=== PATIENT | male | born 1955 | race Caucasian/White ===

== ENCOUNTER 2016-12-06 14:37 | Inpatient (IN) | payer MEDICAID ==
[~2016-12-06] VITALS: Ht 167.6 cm; Wt 118.7 kg
--- NOTE | 2016-12-06 15:06 | NUR ---
ARRIVE TO ROOM VIA STRETCHER FROM [facility] ACCOMPANIED BY FIELD BROOMER AND SPOUSE. ALERT AND ORIENTED X4. TORRES DRAINING BY GRAVITY. LT AC PATENT SALINE LOCKED. REPORT SHOWS RECIEVING LOVENOX INJ. CHRONIC SOB, HOME OXYGEN. REQUESTING MORPHINE TO BE ORDERED. COMPLAINS OF SCROTUM HURTING. CONTINUE ADMISSION PROCESS. BED LOCKED AND LOW. CALL LIGHT IN REACH. TWO SIDERAILS UP.
[2016-12-06 15:37] LABS: BASOPHILS 0.3 % (0-2); EOSINOPHILS 2.5 % (0-7); HEMATOCRIT 34.4 % (42.0-54.0); HEMOGLOBIN 10.5 g/dL (13.5-17.5); IMMATURE GRANULOCYTES 0.2 % (0-5); LYMPHOCYTES 15.4 % (15-50); MCH 29.9 pg (26.0-34.0); MCHC 30.5 g/dL (31.0-37.0); MEAN PLATELET VOLUME 11.5 fL (7.4-10.4); MONOCYTES 13.7 % (2-11); NEUTROPHILS 67.9 % (40-80); PLATELET COUNT 165 10x3/uL (130-400); RBC 3.51 10x6/uL (4.20-6.10); RDW 14.9 % (11.5-14.5); WBC 10.6 10x3/uL (4.8-10.8)
[2016-12-06 15:56] LABS: ALBUMIN 2.9 g/dL (3.4-5.0); ANION GAP 11.1 mmol/L (8-16); BILIRUBIN - DIRECT 0.19 mg/dL (0.00-0.30); BILIRUBIN - INDIRECT 0.2 mg/dL (0.00-1.00); BILIRUBIN - TOTAL 0.39 mg/dL (0.2-1.3); CALCIUM 7.8 mg/dL (8.5-10.1); CARBON DIOXIDE 31.5 mmol/L (21.0-32.0); POTASSIUM - SERUM 4.6 mmol/L (3.5-5.1); PROTEIN - SERUM 7.2 g/dL (6.4-8.2)
[2016-12-06 15:59] VITALS: BP 90/42
[2016-12-06] MEDS ORDERED: LOVASTATIN20 MG PO (15:59)
[2016-12-06] MEDS ORDERED: NITROSTAT0.4 MG SL (16:00)
[2016-12-06] MEDS ORDERED: ISOSORBIDE MONO60 M1 PO (16:04)
[2016-12-06] MEDS ORDERED: COREG12.5 MG PO (16:06)
[2016-12-06] MEDS ORDERED: PROAIR HFA8.5 GM INH (16:06)
[2016-12-06] MEDS ORDERED: ZOFRAN4 MG PO (16:07)
[2016-12-06] MEDS ORDERED: HYDROCODON-ACE1 EAC7 PO (16:07)
[2016-12-06 16:08] LABS: INR 1.23 (0.85-1.17); PROTIME 15.4 SECONDS (11.6-15.0)
[2016-12-06] MEDS ORDERED: SYNTHROID25 MCG PO (16:08)
[2016-12-06] MEDS ORDERED: PHENAZOPYRIDIN100 MG PO (16:08)
[2016-12-06] MEDS ORDERED: HYDROCORTISONE30 G9 TOPICAL (16:09)
[2016-12-06] MEDS ORDERED: ANUSOL-HC25 MG RC (16:10)
[2016-12-06] MEDS ORDERED: ROCEPHIN 1 GM/D51 G1 IV (16:11)
[2016-12-06 16:35] VITALS: BP 98/51; BMI 51.4
[2016-12-06 17:06] LABS: THYROID STIMULATING HORMONE 5.42 uIU/mL (0.36-3.74)
--- NOTE | 2016-12-06 18:45 | NUR ---
ALERT AND ORIENTED X4. CONSENTS SIGNED FOR TRIALYSIS PLACEMENT. EKG COMPLETE ON CHART. TRIALYSIS PLACED BY . PLAN TO DIALIZE TONIGHT. CONTINUE PLAN OF CARE AND SAFETY PRECAUTIONS.
[2016-12-06 19:09] LABS: T4 THYROXIN - FREE 1.3 ng/dL (0.76-1.46)
[2016-12-06 20:00] VITALS: BP 119/55
--- NOTE | 2016-12-06 20:20 | NUR ---
AWAKE AND ALERT. CO PAIN BUT EXPLAINED TO PT NOTHING ORDERED.
[2016-12-07] VITALS: BP 116/61
[2016-12-07 04:00] VITALS: BP 133/60
--- NOTE | 2016-12-07 05:00 | NUR ---
DURING THIS SHIFT, PT CO PAIN IN NECK. TRIALYSIS DRESSING NOT CORRECT. DRESSING CHANGED BY Kerwin MARES LPN. BIOPATCH APPLIED. DRESSING DATED. MEDICATED FOR PAIN.
[2016-12-07 06:05] LABS: ANION GAP 12.2 mmol/L (8-16); CARBON DIOXIDE 31.1 mmol/L (21.0-32.0); CREATININE - SERUM 5.4 mg/dL (0.6-1.3); POTASSIUM - SERUM 4.3 mmol/L (3.5-5.1)
--- NOTE | 2016-12-07 07:04 | OP ---
PATIENT NAME: CHLOE LANGSTON MEDICAL RECORD: [id number] :57 LOCATION:D. D.2125 ADMISSION DATE:12/06/16 SURGEON: MOOK LAROSE MD DATE OF OPERATION: 12/06/2016 SURGEON: Dr. Mook Larose. PREOPERATIVE DIAGNOSES: Acute renal failure requiring hemodialysis, congestive heart failure, diabetes, coronary artery disease and chronic obstructive pulmonary disease. POSTOPERATIVE DIAGNOSES: Acute renal failure requiring hemodialysis, congestive heart failure, diabetes, coronary artery disease and chronic obstructive pulmonary disease. PROCEDURE PERFORMED: Ultrasound-guided insertion of left internal jugular Trialysis catheter. ANESTHESIA: Local. COMPLICATIONS: None. SPECIMENS: None. Case was clean. ESTIMATED BLOOD LOSS: 20 cc. OPERATIVE COURSE: After consent was obtained, the patient was placed in the supine position in his hospital bed. He was placed in Trendelenburg position. A shoulder roll was placed. A timeout was taken to confirm the correct patient and procedure. The left chest and neck were prepped and draped in typical sterile fashion. Left internal jugular vein was identified with ultrasound. The left internal jugular vein was cannulated under ultrasound guidance. The angiocatheter was left in place and that was removed. The wire was placed through the angiocatheter. The angiocatheter was removed. The skin incision was made with 11-blade scalpel. Dilators were passed over the wire in a standard Seldinger fashion, catheter was passed through the wires in standard Seldinger fashion and catheter was secured to the skin using 2-0 nylon suture in an interrupted fashion. Sterile Tegaderm dressing was placed. At the end of the procedure, all needle and instrument counts were correct. No complications occurred and immediate postoperative chest x-ray was performed to confirm placement of the line. TRANSINT:[id number] Voice Confirmation ID: [id number] DOCUMENT ID: [id number] MOOK LAROSE MD at 0704 CC: [id number] DICTATION DATE: 12/06/161750 ROSE GROWER: 12/07/16 0044 ADM IN [place] [id number] [place] [address]
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
--- NOTE | 2016-12-07 08:04 | NUR ---
ASSESSMENT DONE. DENIES NEEDS.
[2016-12-07 08:45] VITALS: BP 125/60
--- NOTE | 2016-12-07 09:06 | NUR ---
UP IN CHAIR WITH CALL LIGHT IN REACH. RESP UL ON . BRIAN INTACT. AT BS. WILL CONT. PLAN OF CARE.
--- NOTE | 2016-12-07 11:00 | NUR ---
TO HD PER BED
[2016-12-07 12:30] VITALS: Ht 167.6 cm; Wt 118.7 kg
--- NOTE | 2016-12-07 14:00 | NUR ---
Patient Name: CHLOE LANGSTON Admission Status: Urgent Accout number: [id number] Admission Date: 12-06-2016 : 1955 Admission Diagnosis: Attending: RADHA Current LOS: 1 Anticipated DC Date: Planned Disposition: Home with Home Health Primary Insurance: MEDICAID [place] PLANNED EXTERNAL PROVIDER: [facility] Discharge Planning Comments: * Is the patient Alert and Oriented? Yes 0 * How many steps to enter\exit or inside your home? 5 0 * PCP DR. WOODRUFF 0 * Pharmacy [facility] DRUGS 0 * Preadmission Environment Home with Family 0 * ADLs Independent 0 * Equipment Oxygen 0 * Other Equipment HOME OXYGEN ONLY [facility] - MEDICAL EQUIPMENT PROVIDER 0 * List name and contact numbers for known caregivers / representatives who currently or will assist patient after discharge: ROMIE LANGSTON, SPOUSE, 0 * Community resources currently utilized Home Health 0 * Please name any agencies selected above. [facility], 0 * Additional services required to return to the preadmission environment? Yes * Can the patient safely return to the preadmission environment? Yes 0 * Has this patient been hospitalized within the prior 30 days at any hospital? No 0 CM RECEIVED ORDER FOR OUTPATIENT DIALYSIS ARRANGEMENT IN [place]. CM MET WITH PT AND SPOUSE IN ROOM TO DISCUSS DISCHARGE PLANNING AND NEEDS. PT REPORTS LIVING AT HOME INDEPENDENTLY WITH HIS SPOUSE. PT HAS HOME OXYGEN FROM [facility]. PT HAS HOME HEALTH WITH [facility] FOR NURSING CARE ONCE WEEKLY. CM DISCUSSED AVAILABILITY OF HOME HEALTH, REHAB SERVICES AND MEDICAL EQUIPMENT. PT DENIES DISCHARGE NEEDS, REPORTS HE WILL GO HOME AT DISCHARGE AND HAS NO TRANSPORTATION. PT'S SPOUSE REPORTS THEY WILL HAVE A FRIEND PICK THEM UP IF NEEDED. PT'S SPOUSE REPORTS THEY WILL HAVE DIFFICULTY GETTING TRANSPORATION ON REGULAR BASIS FOR DIALYSIS. PT HAS MEDICAID AND NEVER USED MEDICAID TRANSPORTATION SERVICES. PT DOES WANT OUTPATIENT DIALYSIS ARRANGED IN [facility]. CM CALLED [facility], PATIENT PATHWAYS COORDINATOR, , LEFT MESSAGE NOTIFYING OF ORDER FOR OUTPATIENT CLINIC ARRANGEMENT. CM CALLED [employer]ICAID TRANSPORTATION, , SPOKE TO REY AND VERIFIED PT HAS UNLIMITED FREE MEDICAL TRANSPORTATION. [facility] DOES NOT OPERATE ON WEEKENDS OR HOLIDAYS. FOR OUTPATIENT DIALYSIS CLINIC TRANSPORTATION ARRANGEMENT , FAX APPOINTMENT INFORMATION WITH FACE SHEET TO [employer]ICA[employer] TRANSPOR[employer], . CM NOTIFIED PT AND SPOUSE IN ROOM, PROVIDED MEDICAID TRANSPORTATION NUMBER. CM CALLED [facility], , SPOKE TO ROB WHO REPORTED THAT PT HAS BEEN DISCHARGED FROM HOME HEALTH AND WILL REQUIRE NEW ORDERS FOR HOME HEALTH IF NEEDED. CM WAITING OUTPATIENT DIALYSIS CLINIC ARRANGEMENT FOR PT BY PATIENT PATHWAYS COORDINATOR. ONCE DIALYSIS CLINIC APPOINTMENT INFORMATION RECEIVED, FOR TRANSPORTATION ARRANGEMENT, CM TO FAX APPOINTMENT INFORMATION WITH FACE SHEET TO MEDICAID TRANSPORATION, . IF PATIENT REQUIRES HOME HEALTH, NEW PHYSICIAN ORDERS WILL BE REQUIRED. It Intern: Del Shankar
--- NOTE | 2016-12-07 16:25 | NUR ---
SCD'S ON JOHN LE
[2016-12-07 16:39] VITALS: BP 145/70
[2016-12-07 16:54] LABS: CREATININE - URINE 53.9 mg/dL (30-125); PROTEIN - URINE 23.2 mg/dL (0.0-11.9)
[2016-12-07 16:57] LABS: APPEARANCE CLEAR (CLEAR); BILIRUBIN NEGATIVE (NEGATIVE); COLOR YELLOW (YELLOW); GLUCOSE NEGATIVE (NEGATIVE); KETONE NEGATIVE (NEGATIVE); LEUKOCYTE ESTERASE 2+ (NEGATIVE); NITRITE POSITIVE (NEGATIVE); PROTEIN NEGATIVE (NEGATIVE); SPECIFIC GRAVITY 1.015 (1.005-1.020); UROBILINOGEN NORMAL (NORMAL)
[2016-12-07 16:58] LABS: BACTERIA FEW /hpf (NONE SEEN); EPITHELIAL CELLS 0-5 /hpf (0-5); RED CELLS - URINE 0-5 /hpf (0-5)
[2016-12-07 20:16] VITALS: BP 149/78
--- NOTE | 2016-12-07 20:51 | NUR ---
DIALYSIS COORDINATOR: Received verbal order from Dr. Elizabeth regarding patient needing OPHD placement. Chart accessed, records uploaded. Patient lives in [place], request for placement at [facility] ([place]). Referral forwarded review. Schedule pending business services director & financial approval. FELICE FREITAS.
[2016-12-08 00:23] VITALS: BP 131/70
[2016-12-08 04:13] VITALS: BP 131/75
[2016-12-08 04:58] LABS: BASOPHILS 0.3 % (0-2); EOSINOPHILS 2.8 % (0-7); HEMATOCRIT 34.9 % (42.0-54.0); HEMOGLOBIN 10.9 g/dL (13.5-17.5); IMMATURE GRANULOCYTES 0.1 % (0-5); LYMPHOCYTES 15.2 % (15-50); MCH 30.1 pg (26.0-34.0); MCHC 31.2 g/dL (31.0-37.0); MCV 96.4 fL (80.0-100.0); MEAN PLATELET VOLUME 11.1 fL (7.4-10.4); MONOCYTES 14.8 % (2-11); NEUTROPHILS 66.8 % (40-80); PLATELET COUNT 192 10x3/uL (130-400); RBC 3.62 10x6/uL (4.20-6.10); RDW 14.6 % (11.5-14.5); WBC 9.3 10x3/uL (4.8-10.8)
[2016-12-08 05:14] LABS: TOTAL IRON BIND CAPACITY 296 ug/dl (260-445)
[2016-12-08 05:27] LABS: ANION GAP 9.9 mmol/L (8-16); CALCIUM 8.9 mg/dL (8.5-10.1); CARBON DIOXIDE 33.6 mmol/L (21.0-32.0)
[2016-12-08 05:28] LABS: CREATININE - SERUM 3.2 mg/dL (0.6-1.3); POTASSIUM - SERUM 3.5 mmol/L (3.5-5.1)
[2016-12-08 05:59] LABS: % SATURATION 12 % (15-55); IRON 36 ug/dl (35-150); UNSAT IRON BIND CAPACITY 248 ug/dl (150-375)
[2016-12-08 08:08] VITALS: BP 136/70
--- NOTE | 2016-12-08 10:41 | NUR ---
HIBCLEANS BATH GIVEN PREOP FOR OR.
[2016-12-08 11:24] VITALS: BP 161/91
--- NOTE | 2016-12-08 13:47 | NUR ---
PT REFUSES SCD'S STATES THEY HURT AND HE DOES NOT WANT THEM ON RIGHT NOW.
[2016-12-08 15:37] VITALS: BP 110/54
--- NOTE | 2016-12-08 17:26 | NUR ---
SITTING UP IN CHAIR CO PAIN IN SHOULDER AND NECK.
--- NOTE | 2016-12-08 18:35 | NUR ---
DIALYSIS COORDINATOR: Placement pending. Did not receive schedule from Dhaval Fletcher today. FELICE FREITAS
[2016-12-08 19:00] VITALS: BP 156/75
[2016-12-09] VITALS: BP 158/76
--- NOTE | 2016-12-09 00:04 | NUR ---
INITIAL ROUNDS COMPLETED AT 1909 HRS. PT IN RECLINER RESTING WITH EYES CLOSED. RESP EVEN AND REGULAR. AT BEDSDIE. ASSESSMENT COMPLETED AT 2034 HRS. VSS. SR PER CM HR 72. O2 3LNC. LUNGS DIMINISHED IN BASES BILAT WITH SCATTERED INSP WHEEZES NOTED TO UPPER LOBES. IV TO LAC WITH NS AT 5CC/HR. IV PATENT. L CHEST HEMOSPLIT WITH DRIED BLLOD NOTED DOWN TO MID CHEST AND L SHOULDER. 2-3+ EDEMA FROM MID THIGH DOWN. PALPABLE PEDAL PULSES. PM FSBS 226. REG INSULIN 4 UNITS GIVEN SUB-Q TO UPPER R ARM PER S/S. PM MEDS GIVNE. NEW CVL DRESSING APPLIED TO HEMOSPLIT USING STERILE TECHNIQUE. PT TOLERATED WELL. PT CURRETNLY RESTING WITH EYES CLOSED. RESP EVEN AND REGULAR. SR UP X2, CALL LIGHT WITHIN REACH.
--- NOTE | 2016-12-09 02:34 | NUR ---
CUP OF ICE GIVEN PER REQUEST. REINFORCED 1200CC FLUID RESTRICTION. INFORMED NO MORE FLUID UNTIL AM. WILL CONTINUE TO MONITOR.
--- NOTE | 2016-12-09 03:01 | NUR ---
BUPRENEX 0.2MG SIVP GIVEN FOR C/O CHEST PAIN. ANUSOL SUPP GIVEN PER REQUEST. WILL CONTINUE TO MONITOR.
[2016-12-09 04:00] VITALS: BP 142/68
--- NOTE | 2016-12-09 04:15 | NUR ---
PT RESTING WITH EYES CLOSED. IN RECLINER. RESP EVEN AND REGULAR. CALL LIGHT WITHIN REACH ANND AT BEDSIDE.
[2016-12-09 05:41] LABS: BASOPHILS 0.3 % (0-2); EOSINOPHILS 3.3 % (0-7); HEMATOCRIT 33.9 % (42.0-54.0); HEMOGLOBIN 10.3 g/dL (13.5-17.5); IMMATURE GRANULOCYTES 0.3 % (0-5); LYMPHOCYTES 15.5 % (15-50); MCH 29.9 pg (26.0-34.0); MCHC 30.4 g/dL (31.0-37.0); MEAN PLATELET VOLUME 10.8 fL (7.4-10.4); MONOCYTES 17.2 % (2-11); NEUTROPHILS 63.4 % (40-80); RBC 3.44 10x6/uL (4.20-6.10)
[2016-12-09 05:43] LABS: ANION GAP 10.2 mmol/L (8-16); CALCIUM 8.5 mg/dL (8.5-10.1); CARBON DIOXIDE 35.2 mmol/L (21.0-32.0); CREATININE - SERUM 3.2 mg/dL (0.6-1.3); POTASSIUM - SERUM 3.4 mmol/L (3.5-5.1)
[2016-12-09 05:45] LABS: MCV 98.5 fL (80.0-100.0); PLATELET COUNT 266 10x3/uL (130-400); WBC 11.7 10x3/uL (4.8-10.8)
--- NOTE | 2016-12-09 06:24 | NUR ---
VSS THROUGHOUT NIGHT. SR PER CM. PT STATED BUPRENEX HELPED CHEST PAIN. NEEDS MET; WILL CONTINUE TO MONITOR. AM FSBS 110. NO COVERGE NEEDED.
--- NOTE | 2016-12-09 07:45 | OP ---
PATIENT NAME: CHLOE LANGSTON MEDICAL RECORD: [id number] :57 LOCATION:D. D.2125 ADMISSION DATE:12/06/16 SURGEON: MOOK LAROSE MD DATE OF OPERATION: 12/08/2016 SURGEON: Mook Larose MD. PREOPERATIVE DIAGNOSIS: Acute renal failure requiring hemodialysis. POSTOPERATIVE DIAGNOSIS: Acute renal failure requiring hemodialysis. PROCEDURES PERFORMED: 1. Removal of left internal jugular Trialysis catheter. 2. Placement of a tunneled left internal jugular HemoSplit. 3. Ultrasound guidance. 4. Immediate interpretation of fluoroscopy. ANESTHESIA: General. COMPLICATIONS: None. ESTIMATED BLOOD LOSS: 300 cc. Case was clean. OPERATIVE COURSE: After consent was obtained, the patient was taken to the operating room and placed in supine position on the operating table. Next, general anesthesia was given via endotracheal intubation after a timeout was taken to confirm the correct patient and procedure. Neck and chest were prepped and draped in typical sterile fashion. A 20 cc of local anesthetic were administered. A 0.035 guidewire was placed through the Trialysis catheter. It was advanced to the atriocaval junction under fluoroscopy, the Trialysis catheter was removed. The dilator and breakaway sheath were passed over the wire in a standard Seldinger fashion. The HemoSplit was tunneled and incision was made in the left chest wall. The HemoSplit was tunneled from the left chest wall incision to the needle stick site. The dilator and wire were removed. The catheter was placed to the breakaway sheath. The breakaway sheath was removed. The catheter at this time would not aspirate blood, it would not flush. The catheter was removed in its entirety. Next, the ultrasound probe was used to identify the left internal jugular vein and under ultrasound guidance, left internal jugular vein was cannulated. A 0.035 guidewire was placed through the needle under fluoroscopy, it was advance to the atriocaval junction and the needle was removed. The dilator and breakaway sheath were then passed over the wire again under fluoroscopy. A second catheter was then tunneled from the skin incision site to the needle stick site. The 0.035 Glidewire was then backloaded through the HemoSplit catheter. The dilator was removed. The HemoSplit catheter was then placed through the breakaway sheath. The breakaway sheath was removed. The catheter was advanced over the Glidewire and placed in the atriocaval junction. At this time, the Glidewire was removed. The needle stick site was closed with 3-0 Vicryl suture. Catheter was secured to the skin using 2-0 nylon suture and sterile Tegaderm dressing. Blood was aspirated to both ports. The ports were then flushed with 30 cc of saline mixed with 5000 units of heparin. At the end of the case, all needle and instrument counts were correct. No complications occurred. The patient extubated and transferred to the PACU in stable condition. OPERATIVE REPORT [id number] CHLOE LANGSTON TRANSINT:[id number] Voice Confirmation ID: [id number] DOCUMENT ID: [id number] MOOK LAROSE MD at 0745 CC: [id number] DICTATION DATE: 12/08/[address]OR: 12/08/16 2200 ADM IN [place] [address] [place] [address]
[2016-12-09 08:01] VITALS: BP 115/58
--- NOTE | 2016-12-09 08:14 | NUR ---
ASSESSMENT COMPLETED. TELEMERTY SHOWS SR 79. 02 AT 3 L/M PER NC. LEFT AC WITH NS AT 5. LEFT CHEST HEMISPLIT. 2 TO 3 EDEMA TO LEGS. TELEMERTY SHOWS SR. SLEEPING IN RECLINER. FAMILY AT BEDSIDE. WILL MONITOR
[2016-12-09 08:17] LABS: HEPATITIS C ANTIBODY <0.1 (0.0-0.9)
[2016-12-09 11:34] VITALS: BP 123/63
--- NOTE | 2016-12-09 11:52 | NUR ---
RESTING QUIETLY MEAL SERVED NAD NOTED
[2016-12-09 14:54] LABS: APPEARANCE CLEAR (CLEAR); BILIRUBIN NEGATIVE (NEGATIVE); COLOR YELLOW (YELLOW); GLUCOSE NEGATIVE (NEGATIVE); KETONE NEGATIVE (NEGATIVE); LEUKOCYTE ESTERASE 1+ (NEGATIVE); NITRITE NEGATIVE (NEGATIVE); PROTEIN TRACE mg/dL (NEGATIVE); UROBILINOGEN NORMAL (NORMAL)
[2016-12-09 14:55] LABS: BACTERIA FEW /hpf (NONE SEEN); EPITHELIAL CELLS 0-5 /hpf (0-5); RED CELLS - URINE 0-5 /hpf (0-5)
[2016-12-09 15:42] VITALS: BP 124/58
--- NOTE | 2016-12-09 18:01 | NUR ---
UP IN BEDSIDE CHAIR. DENIES ANY NEEDS. CALL LIGHT IN REACH WITH FAMILY AT BED SIDE. AWAITING DIALYSIS.
--- NOTE | 2016-12-09 20:52 | NUR ---
PT RESTING IN RECLINER. O2 @ 3L/NC. HEMOSPLIT IN LEFT CHEST WALL. HEMODIALYSIS IS NOW BEING DONE IN PATIENT'S ROOM. WILL MONITOR. CPOC.
--- NOTE | 2016-12-10 00:15 | NUR ---
DIALYSIS NOW COMPLETE. PT RESTING IN BED. AT BEDSIDE. CPOC. CALL LIGHT IN REACH.
[2016-12-10 04:00] VITALS: BP 118/57
[2016-12-10 04:46] LABS: BASOPHILS 0.2 % (0-2); EOSINOPHILS 3.4 % (0-7); HEMATOCRIT 32.4 % (42.0-54.0); HEMOGLOBIN 9.8 g/dL (13.5-17.5); IMMATURE GRANULOCYTES 0.3 % (0-5); LYMPHOCYTES 18.5 % (15-50); MCH 30.1 pg (26.0-34.0); MCHC 30.2 g/dL (31.0-37.0); MCV 99.4 fL (80.0-100.0); MEAN PLATELET VOLUME 10.1 fL (7.4-10.4); MONOCYTES 11.7 % (2-11); NEUTROPHILS 65.9 % (40-80); PLATELET COUNT 223 10x3/uL (130-400); RBC 3.26 10x6/uL (4.20-6.10); RDW 14.6 % (11.5-14.5); WBC 11.1 10x3/uL (4.8-10.8)
[2016-12-10 04:57] LABS: ANION GAP 8.7 mmol/L (8-16); CALCIUM 8.3 mg/dL (8.5-10.1); CREATININE - SERUM 2.5 mg/dL (0.6-1.3); POTASSIUM - SERUM 3.7 mmol/L (3.5-5.1)
--- NOTE | 2016-12-10 07:36 | NUR ---
ASSESSMENT COMPLETED. UP IN BEDSIDE CHAIR SLEEPING. 02 AT 4 L/M PER NC. HEMISPLIT TO LEFT CHEST. TELEMERTY SHOWS SR. FAMILY AT BEDSIDE. WILL MONIITOR. CALL LIGHT IN REACH.
[2016-12-10 08:00] VITALS: BP 125/53
--- NOTE | 2016-12-10 10:28 | NUR ---
SITTING IN CHAIR RESP UNLABORED NAD NOTED
[2016-12-10 12:00] VITALS: BP 120/57
--- NOTE | 2016-12-10 14:32 | NUR ---
DRESSING CHANGE TO HEMOSPLIT CATH IN THE LEFT UPPER CHEST, DRESSING DATED AND INITIALED
--- NOTE | 2016-12-10 15:06 | NUR ---
LYING IN BED. DENIES ANY FUTHER PAIN. AT BEDSIDE
[2016-12-10 16:00] VITALS: BP 127/65
[2016-12-10 20:00] VITALS: BP 146/55
[2016-12-11] VITALS (7 sets, daily range): BP systolic 120–163; BP diastolic 49–77
--- NOTE | 2016-12-11 04:41 | NUR ---
PT AWAKENED FOR AM LAB AND THEN C/O LEGS CRAMPING AND HURTING ALL OVER. REQUEST AND RECIEVED IV BUPRENEX 0.2MG SIVP FOR PAIN. PT IS UP IN BEDSIDE CHAIR AND IS UP AND ABOUT IN ROOM. PT TALKS VERY ABRUBTLY AND HARSHLY TO . MONITOR AND CPOC.
[2016-12-11 04:53] LABS: BASOPHILS 0.1 % (0-2); EOSINOPHILS 5.1 % (0-7); HEMOGLOBIN 10.3 g/dL (13.5-17.5); IMMATURE GRANULOCYTES 0.2 % (0-5); LYMPHOCYTES 20.9 % (15-50); MCHC 30.3 g/dL (31.0-37.0); MCV 99.1 fL (80.0-100.0); MEAN PLATELET VOLUME 9.9 fL (7.4-10.4); MONOCYTES 13.3 % (2-11); NEUTROPHILS 60.4 % (40-80); PLATELET COUNT 216 10x3/uL (130-400); RBC 3.43 10x6/uL (4.20-6.10); RDW 14.4 % (11.5-14.5); WBC 9.3 10x3/uL (4.8-10.8)
[2016-12-11 05:02] LABS: ANION GAP 12.2 mmol/L (8-16); CALCIUM 8.3 mg/dL (8.5-10.1); CARBON DIOXIDE 31.5 mmol/L (21.0-32.0); POTASSIUM - SERUM 3.7 mmol/L (3.5-5.1)
--- NOTE | 2016-12-11 06:33 | NUR ---
PT WITH EYES CLOSED, RESTING IN RECLINER. HAS SLEPT SINCE RECIEVING LAST DOSE OF BUPRENEX IV. NO CHANGE FROM INITIAL SHIFT ASSESSMENT. MONITOR AND CPOC.
--- NOTE | 2016-12-11 07:39 | NUR ---
ASSESSMENT DONE. AT SIDE.
--- NOTE | 2016-12-11 07:56 | NUR ---
RESP ON ON 2L NC. YOUTH ACCOMMODATION SUPPORT WORKER AT ASSISTING WITH NEEDS. WILL CONT. PLAN OF CARE.
--- NOTE | 2016-12-11 18:15 | NUR ---
WITHOUT CHANGES OR DISTRESS NOTED AT THIS TIME.
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
--- NOTE | 2016-12-11 21:29 | NUR ---
FSBS 165, PT REFUSES INS SS COVERAGE.
--- NOTE | 2016-12-12 00:38 | NUR ---
FLOOR LAYER HELPER AT BEDSIDE FOR VS. NEEDS ADDRESSED AT THIS TIME. CALL LIGHT IN REACH. WILL CONT TO MONITOR.
[2016-12-12 04:01] VITALS: BP 136/52
--- NOTE | 2016-12-12 05:25 | NUR ---
RESTING WELL WITH EYES CLOSED, CONT TO MONITOR.
[2016-12-12 06:01] LABS: BASOPHILS 0.2 % (0-2); EOSINOPHILS 4.6 % (0-7); HEMATOCRIT 31.7 % (42.0-54.0); HEMOGLOBIN 9.8 g/dL (13.5-17.5); IMMATURE GRANULOCYTES 0.2 % (0-5); LYMPHOCYTES 17.5 % (15-50); MCH 30.4 pg (26.0-34.0); MCHC 30.9 g/dL (31.0-37.0); MCV 98.4 fL (80.0-100.0); MEAN PLATELET VOLUME 9.9 fL (7.4-10.4); NEUTROPHILS 64.5 % (40-80); PLATELET COUNT 211 10x3/uL (130-400); RBC 3.22 10x6/uL (4.20-6.10); WBC 8.2 10x3/uL (4.8-10.8)
[2016-12-12 06:19] LABS: ANION GAP 7.1 mmol/L (8-16); CALCIUM 8.6 mg/dL (8.5-10.1); CARBON DIOXIDE 37.3 mmol/L (21.0-32.0); CREATININE - SERUM 1.6 mg/dL (0.6-1.3); POTASSIUM - SERUM 3.4 mmol/L (3.5-5.1)
--- NOTE | 2016-12-12 07:33 | NUR ---
ASSESSMENT DONE. DENIES NEEDS.
[2016-12-12 08:26] VITALS: BP 124/68
--- NOTE | 2016-12-12 09:33 | NUR ---
UP TO CHAIR. RESP UL ON . CALL LIGHT IN REACH. WILL CONT. PLAN OF CARE.
[2016-12-12 15:44] VITALS: BP 126/62
--- NOTE | 2016-12-12 17:00 | NUR ---
WITHOUT CHANGES OR DISTRESS NOTED AT THIS TIME. AT SIDE.
[2016-12-12 20:19] VITALS: BP 144/87
--- NOTE | 2016-12-12 22:59 | NUR ---
INITIAL ROUNDS MADE. PT SITTING UP IN BED WATCHING TV. NO NEEDS OR C/O AT THIS TIME. CALL LIGHT IN REACH. WILL CONT TO MONITOR.
[2016-12-13 00:41] VITALS: BP 131/62
[2016-12-13 04:23] VITALS: BP 138/65
[2016-12-13 05:49] LABS: BASOPHILS 0.3 % (0-2); EOSINOPHILS 3.6 % (0-7); HEMATOCRIT 35.7 % (42.0-54.0); HEMOGLOBIN 11.3 g/dL (13.5-17.5); IMMATURE GRANULOCYTES 0.3 % (0-5); LYMPHOCYTES 16.7 % (15-50); MCHC 31.7 g/dL (31.0-37.0); MCV 97.8 fL (80.0-100.0); MEAN PLATELET VOLUME 9.8 fL (7.4-10.4); MONOCYTES 10.4 % (2-11); NEUTROPHILS 68.7 % (40-80); RBC 3.65 10x6/uL (4.20-6.10)
[2016-12-13 05:51] LABS: PLATELET COUNT 265 10x3/uL (130-400)
[2016-12-13 06:10] LABS: ANION GAP 12.2 mmol/L (8-16); CALCIUM 9.1 mg/dL (8.5-10.1); CARBON DIOXIDE 32.4 mmol/L (21.0-32.0); POTASSIUM - SERUM 3.6 mmol/L (3.5-5.1)
[2016-12-13 08:14] VITALS: BP 124/69
[2016-12-13 11:49] VITALS: BP 114/54
--- NOTE | 2016-12-13 14:28 | NUR ---
THIS SHIFT : IN AM PT CO PAIN AND WAS MEDICATED ACCORDINGLY. PT SLEPT FOR SEVERAL HOURS. CO BOWELS NOT MOVING PRUNE JUICE GIVEN. EXTREMTIES STILL EDEMATOUS.
[2016-12-13 15:51] VITALS: BP 150/78
[2016-12-13 19:00] VITALS: BP 138/63
--- NOTE | 2016-12-13 20:29 | NUR ---
RESUMED CARE OF PT, UP IN CHAIR WITH EYES CLOSED RESPIRATIONS EVEN AND UNLABORED ON 2LPM VIA NC. AT BEDSIDE. CALL LIGHT IN REACH. WILL CONTINUE TO MONITOR. SEE NURSE ASSESSMENT.
[2016-12-14 04:00] VITALS: BP 114/50
[2016-12-14 05:42] LABS: BASOPHILS 0.3 % (0-2); EOSINOPHILS 3.2 % (0-7); HEMATOCRIT 34.2 % (42.0-54.0); HEMOGLOBIN 10.5 g/dL (13.5-17.5); IMMATURE GRANULOCYTES 0.2 % (0-5); LYMPHOCYTES 23.4 % (15-50); MCH 29.9 pg (26.0-34.0); MCHC 30.7 g/dL (31.0-37.0); MCV 97.4 fL (80.0-100.0); MEAN PLATELET VOLUME 9.7 fL (7.4-10.4); MONOCYTES 11.2 % (2-11); NEUTROPHILS 61.7 % (40-80); PLATELET COUNT 238 10x3/uL (130-400); RBC 3.51 10x6/uL (4.20-6.10); RDW 13.8 % (11.5-14.5); WBC 9.4 10x3/uL (4.8-10.8)
[2016-12-14 06:24] LABS: ANION GAP 10.4 mmol/L (8-16); CALCIUM 9.1 mg/dL (8.5-10.1); CARBON DIOXIDE 35.1 mmol/L (21.0-32.0); CREATININE - SERUM 1.7 mg/dL (0.6-1.3); POTASSIUM - SERUM 3.5 mmol/L (3.5-5.1)
--- NOTE | 2016-12-14 07:30 | NUR ---
RECEIVED PT IN BED EYES CLOSED RESP UNLABORED NAD NOTED ASLEEP AT BEDSIDE
[2016-12-14 08:41] VITALS: BP 139/71
--- NOTE | 2016-12-14 11:51 | NUR ---
FSBS 165 REFUSED COVERAGE
[2016-12-14 12:54] VITALS: BP 120/62
[2016-12-14 14:23] LABS: APPEARANCE CLEAR (CLEAR); BILIRUBIN NEGATIVE (NEGATIVE); COLOR U (YELLOW); GLUCOSE NEGATIVE (NEGATIVE); KETONE NEGATIVE (NEGATIVE); LEUKOCYTE ESTERASE NEGATIVE (NEGATIVE); NITRITE NEGATIVE (NEGATIVE); PROTEIN NEGATIVE (NEGATIVE); UROBILINOGEN NORMAL (NORMAL)
--- NOTE | 2016-12-14 16:19 | NUR ---
FSBS 148
[2016-12-14 16:20] VITALS: BP 116/61
[2016-12-14 19:00] VITALS: BP 143/56
--- NOTE | 2016-12-14 20:00 | NUR ---
PT RECEIVED SITTING UP ON SIDE OF BED WITH AT BEDSIDE. ASSESSMENT COMPLETED PER FLOW SHEET AT THIS TIME. PT REQUESTS TO SPEAK WITH CHARGE NURSE, KENDRICK WITH QUESTIONS ABOUT WHAT HE WILL DO CONCERNING HIS PAROLE. PT REQUESTS SANDWICH TRAY AND MILK AND ASKS FOR SOUP AND CRACKERS. DENIES OTHER NEEDS. BED LOW. PHONE AND CALL LIGHT IN REACH. SRX2.
--- NOTE | 2016-12-14 21:05 | NUR ---
PT FSBS 143 AT THIS TIME.
--- NOTE | 2016-12-14 21:12 | NUR ---
PM MEDS GIVEN AT THIS TIME. BUPRENEX 0.2 MG GIVEN IVP FOR PAIN PT RATES 04/01. PT DENIES OTHER NEEDS. BED LOW. PHONE AND CALL LIGHT IN REACH. SRX2.
--- NOTE | 2016-12-14 22:13 | NUR ---
WENT TO REASSESS PTS PAIN. PT SLEEPING AT THIS TIME. RESPIRATIONS EVEN, NON-LABORED. NO ACUTE DISTRESS NOTED AT THIS TIME. BED LOW. PHONE AND CALL LIGHT IN REACH. SRX2.
--- NOTE | 2016-12-14 23:45 | NUR ---
PT RESTING QUIETLY AT THIS TIME WITH EYES CLOSED. RESPIRATIONS EVEN, NON-LABORED. NO ACUTE DISTRESS NOTED. BED LOW. PHONE AND CALL LIGHT IN REACH. SRX2.
--- NOTE | 2016-12-15 00:32 | NUR ---
PT RESTING QUIETLY AT THIS TIME WITH EYES CLOSED. RESPIRATIONS EVEN, NON-LABORED. NO ACUTE DISTRESS NOTED. BED LOW. PHONE AND CALL LIGHT IN REACH. SRX2.
--- NOTE | 2016-12-15 02:43 | NUR ---
PT RESTING QUIETLY AT THIS TIME ON RIGHT SIDE WITH EYES CLOSED. RESPIRATIONS EVEN, NON-LABORED. NO ACUTE DISTRESS NOTED AT THIS TIME. FAMILY MEMBER AT BEDSIDE. BED LOW. PHONE AND CALL LIGHT IN REACH. SRX2.
[2016-12-15 04:00] VITALS: BP 150/67
--- NOTE | 2016-12-15 04:00 | NUR ---
PT RESTING QUIETLY AT THIS TIME WITH EYES CLOSED. RESPIRATIONS EVEN, NON-LABORED. NO ACUTE DISTRESS NOTED AT THIS TIME. BED LOW. PHONE AND CALL LIGHT IN REACH. SRX2.
[2016-12-15 06:07] LABS: ANION GAP 10.7 mmol/L (8-16); CALCIUM 9.3 mg/dL (8.5-10.1); CARBON DIOXIDE 39.3 mmol/L (21.0-32.0)
[2016-12-15 06:12] LABS: HEMOGLOBIN 10.9 g/dL (13.5-17.5); LYMPHOCYTES 17.7 % (15-50); MCH 30.1 pg (26.0-34.0); MCHC 32.1 g/dL (31.0-37.0); MEAN PLATELET VOLUME 8.8 fL (7.4-10.4); NEUTROPHILS 68.5 % (40-80); PLATELET COUNT 243 10x3/uL (130-400); RBC 3.62 10x6/uL (4.20-6.10); RDW 13.1 % (11.5-14.5); WBC 9.3 10x3/uL (4.8-10.8)
[2016-12-15 06:14] LABS: MCV 93.9 fL (80.0-100.0)
--- NOTE | 2016-12-15 07:30 | NUR ---
RESTING QUIETLY EYES CLOSED RESP UNLABORED NAD NOTED ASLEEP IN CHAIR AT BEDSIDE
[2016-12-15 08:12] VITALS: BP 115/55
--- NOTE | 2016-12-15 11:35 | NUR ---
FSBS 154 REFUSED COVERAGE
[2016-12-15 12:14] VITALS: BP 151/85
[2016-12-15 15:43] VITALS: BP 141/70
--- NOTE | 2016-12-15 15:59 | NUR ---
Nutrition Follow Up: Pt is eating 100% meal avg on a renal diet. Wt loss noted - r/t fluid. +BM 12/13/16. Labs reviewed - Glucose trending down. Meds noted. Rec continue current diet. RD following.
--- NOTE | 2016-12-15 16:53 | NUR ---
FSBS 117
--- NOTE | 2016-12-15 19:20 | NUR ---
SHIFT ASSESSMENT COMPLETE. PATIENT IS SITTING UP TO CHAIR IN ROOM WITH NEEDS DENIED. HEMASPLIT TO THE LEFT CHEST CDI. TELEMETRY READING OF SINUS AT 72. IV SALINE LOCK TO THE R/HAND WITH DSG INTACT.
[2016-12-16] VITALS: BP 145/72
--- NOTE | 2016-12-16 00:02 | NUR ---
2100 PO MEDICATION GIVEN ORAL WITH SIPS OF WATER. PATIENT COMPLAINS OF PAIN AND RATES PAIN AT 9 ON SCALE WITH ULTRAM GIVEN AT THIS TIME. 2315 ANSWERED CALL TO ROOM WITH PATIENT REQUESTING MORE PAIN MEDICATION PAIN IS STILL RATED AT 9 BUPERNEX 0.2 GIVEN
--- NOTE | 2016-12-16 00:53 | NUR ---
PATIENT SLEEPING QUIETLY WITH NO DISTRESS NOTED
[2016-12-16 04:00] VITALS: BP 131/59
--- NOTE | 2016-12-16 04:55 | NUR ---
PATIENT RESTING QUIETLY WITH EYES CLOSED. NO DISTRESS NOTED CALL LIGHT IN REACH
[2016-12-16 05:38] LABS: BASOPHILS 0.4 % (0-2); EOSINOPHILS 3.5 % (0-7); HEMATOCRIT 36.3 % (42.0-54.0); HEMOGLOBIN 11.2 g/dL (13.5-17.5); IMMATURE GRANULOCYTES 0.1 % (0-5); LYMPHOCYTES 20.3 % (15-50); MCH 29.8 pg (26.0-34.0); MCHC 30.9 g/dL (31.0-37.0); MCV 96.5 fL (80.0-100.0); MEAN PLATELET VOLUME 9.4 fL (7.4-10.4); MONOCYTES 12.8 % (2-11); NEUTROPHILS 62.9 % (40-80); PLATELET COUNT 227 10x3/uL (130-400); RBC 3.76 10x6/uL (4.20-6.10); RDW 13.7 % (11.5-14.5); WBC 10.5 10x3/uL (4.8-10.8)
[2016-12-16 06:09] LABS: CREATININE - SERUM 2.6 mg/dL (0.6-1.3)
[2016-12-16 06:10] LABS: ANION GAP 10.1 mmol/L (8-16); CARBON DIOXIDE 40.7 mmol/L (21.0-32.0); POTASSIUM - SERUM 2.8 mmol/L (3.5-5.1)
--- NOTE | 2016-12-16 06:39 | NUR ---
CRITICAL LAB CALLED TO [facility] WITH NEW ORDERS FOR 40 MEQ KCL NOW
--- NOTE | 2016-12-16 07:57 | NUR ---
ASSESSMENT DONE. DENIES NEEDS.
--- NOTE | 2016-12-16 08:18 | NUR ---
RESP UL ON . AT BS. CALL LIGHT IN REACH. WILL CONT. PLAN OF CARE.
[2016-12-16 08:54] VITALS: BP 139/77
[2016-12-16 12:48] VITALS: BP 129/66
--- NOTE | 2016-12-16 17:40 | NUR ---
WITHOUT CHANGES OR DISTRESS NOTED AT THIS TIME. AT SIDE.
[2016-12-16 19:00] VITALS: BP 138/73
--- NOTE | 2016-12-16 19:25 | NUR ---
SHIFT ASSESSMENT COMPLETE PATIENT SLEEPING QUIETLY ON R/SIDE TELEMETRY READING OF SINUS AT 93. O2 AT 2 LITERS NASAL IV TO THE R/HAND WITH 1/2 NS AND 20 KCL INFUSING ON PUMP AT 50 CC/HR. L/CHEST HS FOR DIALYSIS ACCESS WITH DRESSING CDI. [address] IN [address]
[2016-12-17] VITALS (7 sets, daily range): BP systolic 104–158; BP diastolic 31–72
--- NOTE | 2016-12-17 00:09 | NUR ---
2044 PATIENT UP TO CHAIR IN ROOM FOR BATH AND LINEN CHANGED. PIV TO RIGHT HAND REMOVED. DRESSING APPLIED. PIV RESTARTED TO LEFT ARM WITH 20 GA. PO MEDICATION GIVEN WITH SIPS OF WATER.
--- NOTE | 2016-12-17 00:12 | NUR ---
RESTING QUIELTY WITH EYES CLOSED NO DISTRESS NOTED
--- NOTE | 2016-12-17 01:39 | NUR ---
MONITORS NOTIFIED OF ABNORMAL RUN IN RTHYM PATIENT SLEEPING QUIETLY NO DISTESS NOTED
[2016-12-17 06:56] LABS: BASOPHILS 0.4 % (0-2); EOSINOPHILS 3.1 % (0-7); HEMOGLOBIN 11.3 g/dL (13.5-17.5); IMMATURE GRANULOCYTES 0.2 % (0-5); LYMPHOCYTES 20.9 % (15-50); MCH 30.3 pg (26.0-34.0); MCHC 31.4 g/dL (31.0-37.0); MCV 96.5 fL (80.0-100.0); MEAN PLATELET VOLUME 9.7 fL (7.4-10.4); MONOCYTES 12.3 % (2-11); NEUTROPHILS 63.1 % (40-80); PLATELET COUNT 249 10x3/uL (130-400); RBC 3.73 10x6/uL (4.20-6.10); RDW 13.8 % (11.5-14.5)
--- NOTE | 2016-12-17 07:22 | NUR ---
ASSESSMENT DONE. DENIES NEEDS.
[2016-12-17 07:28] LABS: CREATININE - SERUM 2.3 mg/dL (0.6-1.3)
[2016-12-17 07:39] LABS: ANION GAP 5.1 mmol/L (8-16); CARBON DIOXIDE 43.6 mmol/L (21.0-32.0); POTASSIUM - SERUM 2.7 mmol/L (3.5-5.1)
--- NOTE | 2016-12-17 09:25 | NUR ---
IV PATENT. AT BS. CALL LIGHT IN REACH. WILL CONT. PLAN OF CARE.
--- NOTE | 2016-12-17 11:09 | CN ---
PATIENT NAME:CHLOE LANGSTON MEDICAL RECORD: [id number] : 57 LOCATION:. D.2125 ADMIT DATE: 12/06/16 ACCOUNT: [id number] CONSULTING PHYSICIAN: JOSE RILEY MD REFERRING PHYSICIAN: TOM THOMPSON MD DATE OF CONSULTATION: 12/16/2016 Gastroenterology Consultation REFERRING PHYSICIAN: Tom Thompson MD. PERPETUAL INVENTORY CLERK: Priyanka Wei DO as an unassigned patient. HISTORY OF PRESENT ILLNESS: The patient is a 61-year-old white male from [place] with history of morbid obesity, hypertension, coronary artery disease status post CABG, CHF, diabetes and COPD, who was basically admitted with anasarca and renal failure. He has been on dialysis for a few days and has had his creatinine decrease/respond. However, he is having persistent vomiting, upper abdominal pain and constipation. Apparently, he has had his gallbladder out, but the patient is not totally clear about that. He has been tried on lactulose, milk of magnesia in the hospital without good results. He has never seen a GI doctor from what I can tell. I was asked to see the patient to help in his evaluation. PAST MEDICAL HISTORY: As above. I should note that he is a poor historian, seems somewhat lethargic. He also has history of thyroid disease, chronic ____, hyperlipidemia, both chronic systolic and diastolic heart disease. He is on home O2. PAST SURGICAL HISTORY: Reportedly positive for cholecystectomy, appendectomy, CABG, PTCA with stents and hernia repair, which I believe was left inguinal. ALLERGIES: No known drug allergies. CURRENT MEDICATIONS: Include lovastatin, nitroglycerin, isosorbide, albuterol, Coreg, hydrocodone p.r.n. pain, Zofran, Synthroid, Pyridium, hydrocortisone cream and Rocephin. FAMILY HISTORY: Negative for GI diseases. SOCIAL HISTORY: The patient is a former smoker. He does have a history of some alcohol use. REVIEW OF SYSTEMS: Noncontributory other than the HPI. LABORATORY DATA: Reveals a white count of 10,000, hematocrit of 36, MCV of 96 and platelet count 327,000 with a normal differential. Hepatitis screen is negative. INR of 1.23. Potassium is low at 2.8, BUN 39, creatinine 2.6 and glucose is 129. LFTs are normal. Iron saturation is 12%. Albumin is 2.9. TSH is 5.4. Free T4 is 1.3. Abdominal ultrasound revealed a difficult exam due to the patient's body habitus. However, he does have fatty liver. Gallbladder was not visualized. IMPRESSION: 1. Vomiting, constipation and upper abdominal pain of unclear etiology, rule CONSULT REPORT [id number] CHLOE LANGSTON RHINA out obstipation, gastroparesis, peptic ulcer disease. As noted above, it does not look like he has a gallbladder from everything I am reading to present. 2. Anasarca/renal insufficiency/failure. 3. Morbid obesity. 4. Poor historian. RECOMMENDATION: 1. KUB, look for obstipation. 2. High dose Protonix and Reglan for now. 3. Change diet from regular to clear liquids. 4. Try MiraLax and mineral oil for now. 5. Depending on above, consider EGD. It does not look like peripheral we are going to need a Pipida at this point. TRANSINT:[id number] Voice Confirmation ID: [id number] DOCUMENT ID: [id number] JOSE RILEY MD at 1109 CC: TOM THOMPSON MD and PRIYANKA WEI DO [id number] DICTATION DATE: 12/16/16 1153 TRAIN CALLER: 12/16/16 1654 ADM IN [place] [id number] [place] [id number]
[2016-12-17 14:51] LABS: CALCIUM 8.6 mg/dL (8.5-10.1); CREATININE - SERUM 2.1 mg/dL (0.6-1.3); MAGNESIUM - SERUM 2.7 mg/dL (1.8-2.4)
[2016-12-17 14:56] LABS: ANION GAP 4.6 mmol/L (8-16); POTASSIUM - SERUM 3.2 mmol/L (3.5-5.1)
[2016-12-17 14:57] LABS: CARBON DIOXIDE 42.6 mmol/L (21.0-32.0)
--- NOTE | 2016-12-17 15:00 | NUR ---
SOAP SUDS ENEMA GIVEN PER ORDER, WITH XL RESULTS.
--- NOTE | 2016-12-17 17:49 | NUR ---
WITHOUT CHANGES OR DISTRESS NOTED AT THIS TIME. AT SIDE.
--- NOTE | 2016-12-17 19:00 | NUR ---
INITIAL ROUNDS MADE. PT LYING IN BED RESTING WELL WITH EYES CLOSED, FAMILY IN ROOM. NO NEEDS VOICED. CALL LIGHT IN REACH. WILL CONT TO MONITOR.
--- NOTE | 2016-12-18 00:25 | NUR ---
CONSULTANTS INTERN AT BEDSIDE FOR VS. NEEDS ADDRESSED AT THIS TIME. CALL LIGHT IN REACH. WILL CONT TO MONITOR.
[2016-12-18 04:24] VITALS: BP 137/66
[2016-12-18 06:19] LABS: BASOPHILS 0.3 % (0-2); EOSINOPHILS 3.4 % (0-7); HEMATOCRIT 36.2 % (42.0-54.0); HEMOGLOBIN 11.2 g/dL (13.5-17.5); IMMATURE GRANULOCYTES 0.2 % (0-5); LYMPHOCYTES 24.7 % (15-50); MCH 29.9 pg (26.0-34.0); MCHC 30.9 g/dL (31.0-37.0); MCV 96.8 fL (80.0-100.0); MEAN PLATELET VOLUME 9.8 fL (7.4-10.4); MONOCYTES 13.8 % (2-11); NEUTROPHILS 57.6 % (40-80); PLATELET COUNT 235 10x3/uL (130-400); RBC 3.74 10x6/uL (4.20-6.10); RDW 13.8 % (11.5-14.5); WBC 8.9 10x3/uL (4.8-10.8)
[2016-12-18 06:43] LABS: ANION GAP 8.7 mmol/L (8-16); CALCIUM 9.1 mg/dL (8.5-10.1); CARBON DIOXIDE 39.5 mmol/L (21.0-32.0); MAGNESIUM - SERUM 2.5 mg/dL (1.8-2.4); POTASSIUM - SERUM 3.2 mmol/L (3.5-5.1)
[2016-12-18 06:46] LABS: CREATININE - SERUM 1.5 mg/dL (0.6-1.3)
--- NOTE | 2016-12-18 07:30 | NUR ---
PT RESTING QUIETLY EYES CLOSED RESP UNLABORED EYES CLOSED NAD NOTED
[2016-12-18 08:13] VITALS: BP 105/53
--- NOTE | 2016-12-18 12:14 | NUR ---
FSBS 118
[2016-12-18 13:24] VITALS: BP 133/59
--- NOTE | 2016-12-18 16:48 | NUR ---
[id number]
[2016-12-18 17:06] VITALS: BP 142/64
--- NOTE | 2016-12-18 19:00 | NUR ---
INITIAL ROUNDS MADE. PT LYING IN BED RESTING WELL WITH EYES CLOSED, FAMILY IN ROOM. DENIES NEEDS. CALL LIGHT IN REACH. WILL CONT TO MONITOR.
[2016-12-18 19:45] VITALS: BP 113/61
[2016-12-18 23:38] VITALS: BP 115/61
--- NOTE | 2016-12-19 00:35 | NUR ---
LIVE IN HOUSEKEEPER NANNY AT BEDSIDE FOR VS. NEEDS ADDRESSED AT THIS TIME. CALL LIGHT IN REACH. WILL CONT TO MONITOR.
[2016-12-19 03:48] VITALS: BP 122/64
[2016-12-19 05:19] LABS: BASOPHILS 0.2 % (0-2); EOSINOPHILS 3.7 % (0-7); HEMATOCRIT 34.6 % (42.0-54.0); HEMOGLOBIN 10.9 g/dL (13.5-17.5); IMMATURE GRANULOCYTES 0.2 % (0-5); LYMPHOCYTES 24.9 % (15-50); MCH 30.1 pg (26.0-34.0); MCHC 31.5 g/dL (31.0-37.0); MCV 95.6 fL (80.0-100.0); MEAN PLATELET VOLUME 9.6 fL (7.4-10.4); MONOCYTES 12.8 % (2-11); NEUTROPHILS 58.2 % (40-80); PLATELET COUNT 205 10x3/uL (130-400); RBC 3.62 10x6/uL (4.20-6.10); RDW 13.4 % (11.5-14.5); WBC 8.4 10x3/uL (4.8-10.8)
[2016-12-19 05:26] LABS: CALCIUM 8.8 mg/dL (8.5-10.1); CREATININE - SERUM 1.3 mg/dL (0.6-1.3); MAGNESIUM - SERUM 2.3 mg/dL (1.8-2.4)
[2016-12-19 05:39] LABS: ANION GAP 4.1 mmol/L (8-16); CARBON DIOXIDE 40.6 mmol/L (21.0-32.0); POTASSIUM - SERUM 3.7 mmol/L (3.5-5.1)
--- NOTE | 2016-12-19 06:30 | NUR ---
RESTING WELL WITH EYES CLOSED, CONT TO MONITOR.
--- NOTE | 2016-12-19 07:30 | NUR ---
RECEIVED PT IN BED AAOX4 RESP UNLABORED BREATHING TX IN PROGRESS NAD NOTED
[2016-12-19 08:19] VITALS: BP 137/74
[2016-12-19] MEDS ORDERED: FUROSEMIDE20 MG PO (10:52)
[2016-12-19 11:52] VITALS: BP 140/72
--- NOTE | 2016-12-19 12:32 | NUR ---
Patient Name: CHLOE LANGSTON Encounter No: [id number] : 1955 Primary Insurance: MEDICAID [facility] Date: Planned Disposition: Home with Home Health External Planned Provider: [facility] follow-up note: CM RECEIVED DISCHARGE ORDER, ORDER TO ASSIST WITH OXYGEN FOR PT TO GET HOME AND HOME HEALTH. CM MET WITH PT AND SPOUSE IN ROOM. PT REPORTS HE HAS PORTABLE OXYGEN AT HOME AND NEEDS IT DELIVERED TO ROOM TO GO HOME TODAY. HE HAS A FRIEND PICKING HE AND SPOUSE UP TODAY. PT STILL FEELS HE NEEDS HOME HEALTH AGAIN AND WANTS [facility] TO COME OUT. PT PLANS TO ARRANGE MEDICAID TRANSPORTATION SERVICES TO GET TO AND FROM DIALYSIS AT HOME. CM CALLED [facility] IN [place], , SPOKE TO LIO WHO REPORTS THAT HE SPOKE TO PT LAST WEEK, INFORMED PT THAT HE IS QUALIFIED FOR HOME OXYGEN ONLY AND THAT IF PORTABLE IS NEEDED, QUALIFICATION TESTING WILL NEED TO BE FAXED TO [facility] IN [place]. CM NOTIFIED PT, PT'S SPOUSE AND BEDSIDE NURSE. CM FAX OUTPATIENT DIALYSIS APPOINTMENT INFORMATION WITH FACE SHEET TO MEDICAID TRANSPORATION, . CM CALLED [facility] [address], , SPOKE TO ROB WHO TOOK REFERRAL FOR HOME HEALTH, WILL CONTACT PT'S PRIMARY DOCTOR FOR CONTINUING HOME HEALTH ORDERS; CM FAXED HOME HEALTH REFERRAL TO [facility] AT [phone]. Del Shankar, CASE MANAGEMENT
--- NOTE | 2016-12-19 14:18 | NUR ---
PT OXYGEN SATURATION IS 98% ON ROOM AIR WITH EXERTION
--- NOTE | 2016-12-19 16:10 | NUR ---
REVIEWED DISCHARGE PAPERS WITH PT AND FAMILY STATE UNDERSTANDING COPY GIVEN SALINE LOCK DCD TO LFA WITH 22 GA IV CATH INTACT SITE FREE OF REDNESS AND EDEMA DR MORENO DCD LT HEMOSPLIT PRIOR TO REVIEW GREG C/D/I TO LT SUBCLAVIAN PT DISCHARGE HOME IN STABLE CONDITION WITH ALL PERSONAL BELONGING LEFT UNIT VIA W/C IN STABLE CONDITION
--- NOTE | 2016-12-20 14:01 | NUR ---
Patient Name: CHLOE LANGSTON Encounter No: [id number] : 1955 Primary Insurance: MEDICAID [facility] [place] Date: 12-19-2016 Planned Disposition: Home with Home Health External Planned Provider: [facility] DCP follow-up note: CM RECEIVED FAX FROM ROB OF [facility] TO CALL REGARDING PT. CM CALLED [facility] AT [phone], SPOKE TO ROB WHO REPORTS THAT PT IS NOT ANSWERING THE PHONE TO SCHEDULE FOR HOME HEALTH ADMISSION. CM VERFIED PT'S PRIMARY DOCTOR DR. CONNELL IN [place] AND PHONE NUMBER PROVIDED BY PT AND SPOUSE WHILE IN THE HOSPITAL. PT HAS PREVIOUSLY BEEN DISCHARGED FROM HOME HEALTH SERVICES DUE TO NON COMPLIANCE AND NOT BEING HOME FOR SCHEDULED SERVICES. ROB WILL CONTACT PRIMARY CARE DOCTOR TO TRY TO GET HOME HEALTH ORDERS AND WILL CONTINUE TO TRY TO CONTACT PT FOR HOME HEALTH ADMISSION. Del Shankar, CASE MANAGEMENT
--- NOTE | 2016-12-21 08:04 | EC ---
PATIENT:CHLOE LANGSTON DATE OF SERVICE: 12/06/16 SEX: M MEDICAL RECORD: [id number] DATE OF : [birth year] LOCATION:D.M2 D.212 AGE OF PATIENT: 61 ADMISSION DATE: 12/06/16 REFERRING PHYSICIAN: INTERPRETING PHYSICIAN: EZIO MAYNARD M.D. ECHOCARDIOGRAM REPORT ECHO CHARGES 4 ECHO COMPLETE CLINICAL DIAGNOSIS: CHF HX CAD/CABG ECHOCARDIOGRAPHIC MEASUREMENTS (adult normal given) AC root (d.<3.7cm) 4.1 LV Septum d (<1.2 cm> 1.3 Valve Excursion 2.0 LV Septum (systole) 1.6 Left Atria (s.<4.0cm> 4.8 LVPW d(<1.2cm) 1.4 RV (d.<2.3cm) 4.0 LVPW (sytole) 1.8 LV diastole(<5.6CM) 7.5 MV E-F(>70mm/sec) LV systole 6.3 LVOT Diameter 2.0 MV exc.(>10mm) Est.ejection fraction (50-75%) Pericardial Effusion N DOPPLER: LVIT A 67.0 E 149 LA RVSP 24 LVOT 117 AOP1/2T Asc. Ao 154 RVOT 115 RA PA 165 AV Gradient Peak 9.52 AV Mean 4.59 AV Area 2.5 MV Gradient Peak 8.22 MV Mean 2.82 MV Area COMMENTS: Sumo Wrestler: Alejo ESPINO Bander Hand:Alejo Maynard TAPE# PACS DATE OF SERVICE: 12/07/2016 REFERRING PHYSICIAN: Tom Elizabeth MD. INDICATION: CHF. DESCRIPTION: Left ventricle is moderately dilated. There is mild LV dysfunction noted. Ejection fraction is in the order of 45%. Mitral valve is structurally normal. There is mild regurgitation seen. Left atrium is moderately dilated. The aortic valve is trileaflet. There is no stenosis or ECHOCARDIOGRAM REPORT [id number] CHLOE LANGSTON regurgitation seen. Right ventricle is moderately dilated. Tricuspid valve is structurally normal. There is mild regurgitation seen. Right atrium is normal size. There is no pericardial effusion noted. IMPRESSION: 1. Moderately dilated left ventricle with mild left ventricular dysfunction with ejection fraction of 45%. 2. Mild mitral regurgitation. 3. Mild tricuspid regurgitation. TRANSINT:[id number] Voice Confirmation ID: [id number] DOCUMENT ID: [id number] EZIO MAYNARD M.D. at 0804 CC: [id number] DICTATION DATE: 12/07/16 1202 MINIATURE SET BUILDER: 12/07/16 1253 DIS IN 12/19/16 [place] [id number] [place] [id number]
--- NOTE | 2016-12-22 12:59 | OP ---
PATIENT NAME: CHLOE LANGSTON MEDICAL RECORD: [id number] :57 LOCATION:D.M2 D.2125 ADMISSION DATE:12/06/16 SURGEON: MEHDI MORENO MD DATE OF OPERATION: 12/19/2016 PREOPERATIVE DIAGNOSES: 1. Chronic kidney disease. 2. Diabetes mellitus. 3. Congestive heart failure, undifferentiated. 4. Coronary artery disease. POSTOPERATIVE DIAGNOSES: 1. Chronic kidney disease. 2. Diabetes mellitus. 3. Congestive heart failure, undifferentiated. 4. Coronary artery disease. PROCEDURE: PROCEDURE: Removal of left IJ HemoSplit catheter. SURGEON: Mehid Moreno MD. REPORT OF PROCEDURE: The patient's left chest was prepped and draped in sterile fashion, 5 cc of 1% lidocaine was infused into the surrounding tissues. The sutures were removed and with gentle tension, the catheter was released from a subcutaneous attachments. The catheter was completely removed. Pressure was held to the area. A dressing was then applied over the neck and the patient's left chest. COMPLICATIONS: None. CONDITION: Stable. ANESTHESIA: Local. BLOOD LOSS: Minimal. Procedure done at the bedside. TRANSINT:[id number] Voice Confirmation ID: [id number] DOCUMENT ID: [id number] MEHDI MORENO MD at 1259 CC: [id number] DICTATION DATE: 12/19/16 1550 RECOVERY MANAGER: 12/19/16 0496 DIS IN 12/19/16 [facility] [address] [place] [address]
== END 2016-12-19 16:10 | disposition home health service (06) | DRG 683 ==
LOC: D.M2 14:37
PROVIDERS: Internal Medicine; ADMIT Internal Medicine Nephrology
PROC: 05HN33Z Insertion of Infusion Device into Left Internal Jugular Vein, Percutaneous Approach (ICD-10-PCS; principal; 2016-12-06)
PROC: B544ZZA Ultrasonography of Left Jugular Veins, Guidance (ICD-10-PCS; 2016-12-06)
PROC: 5A1D60Z (ICD-10-PCS; 2016-12-06)
PROC: 02PY33Z Removal of Infusion Device from Great Vessel, Percutaneous Approach (ICD-10-PCS; 2016-12-08)
PROC: 02HV33Z Insertion of Infusion Device into Superior Vena Cava, Percutaneous Approach (ICD-10-PCS; 2016-12-08)
PROC: B5181ZA Fluoroscopy of Superior Vena Cava using Low Osmolar Contrast, Guidance (ICD-10-PCS; 2016-12-08)
PROC: B548ZZA Ultrasonography of Superior Vena Cava, Guidance (ICD-10-PCS; 2016-12-08)
PROC: 05PYX3Z Removal of Infusion Device from Upper Vein, External Approach (ICD-10-PCS; 2016-12-19)
DX: N17.9 Acute kidney failure, unspecified (principal); I13.0 Hypertensive heart and chronic kidney disease with heart failure and stage 1 through stage 4 chronic kidney disease, or unspecified chronic kidney disease; Z68.43 Body mass index [BMI] 50.0-59.9, adult; N39.0 Urinary tract infection, site not specified; E11.22 Type 2 diabetes mellitus with diabetic chronic kidney disease; N18.4 Chronic kidney disease, stage 4 (severe); I50.9 Heart failure, unspecified; I25.10 Atherosclerotic heart disease of native coronary artery without angina pectoris; E03.9 Hypothyroidism, unspecified; J44.9 Chronic obstructive pulmonary disease, unspecified; E78.5 Hyperlipidemia, unspecified; K64.9 Unspecified hemorrhoids; E66.01 Morbid (severe) obesity due to excess calories; D64.9 Anemia, unspecified; I08.1 Rheumatic disorders of both mitral and tricuspid valves; E87.6 Hypokalemia